=== PATIENT | female | born 1990 | race Caucasian/White ===

== ENCOUNTER → 2025-01-09 15:03 | Outpatient (REF) | payer OTHER, SELFPAY | LOC: PNTC 15:03 | PROVIDERS: ATTENDING PHYSICIAN Obstetrics & Gynecology | DX: O09.30 Supervision of pregnancy with insufficient antenatal care, unspecified trimester (principal); Z36.3 Encounter for antenatal screening for malformations; Z36.9 Encounter for antenatal screening, unspecified | CPT/HCPCS: 76816 ==

== ENCOUNTER 2025-02-16 08:40 | Inpatient (IN) | payer OTHER, SELFPAY ==
[2025-02-16 08:48] VITALS: BP 139/81; BMI 26.3
[2025-02-16] MEDS: LR 1000 IV ×2 (09:00→10:01)
[2025-02-16 09:53] LABS: Hematocrit 41.8 % (37.0-47.0); Hemoglobin 14.4 g/dL (12.0-16.0); Mean Corp Hgb Conc. 34.4 g/dL (33.0-37.0); Mean Corpuscular Volume 87.4 fL (81.0-99.0); Nucleated Red Blood Cells % 0 %; Platelet Count 190 10^3/uL (130-400); Red Cell Dist. Width 12.4 % (11.5-14.5)
[2025-02-16] MEDS: PENICILLIN 110 UNITS IV (09:59)
[2025-02-16] MEDS: SUBLIMAZE 100 MCG EPIDURAL (10:11)
[2025-02-16] MEDS: FENTANYL/BUPIVACAINE 100 EPIDURAL (10:29)
[2025-02-16] MEDS: PENICILLIN 55 UNITS IV (13:28)
[2025-02-16] MEDS: PITOCIN 30 UNITS/NSS 500 ML IV (14:39)
[2025-02-16] MEDS: TYLENOL 650 MG PO (20:06)
[2025-02-16] MEDS: MOTRIN 600 MG PO (20:06)
[2025-02-16] MEDS: COLACE 100 MG PO (20:06)
[2025-02-17 05:14] LABS: Hematocrit 35.4 % (37.0-47.0); Hemoglobin 12.4 g/dL (12.0-16.0)
[2025-02-17] MEDS: PRENATAL PLUS 1 TABLET PO (11:19)
[2025-02-17] MEDS: COLACE 100 MG PO ×2 (11:19→19:25)
[2025-02-17] MEDS: MOTRIN 600 MG PO (19:25)
[2025-02-17] MEDS: TYLENOL 650 MG PO (19:25)
[2025-02-18] MEDS: COLACE 100 MG PO (08:32)
[2025-02-18] MEDS: PRENATAL PLUS 1 TABLET PO (08:32)
[2025-02-20 14:56] LABS: Syphilis/T. pallidum Ab Reflex Negative (Negative)
== END 2025-02-18 11:41 | disposition home or self-care (01) | DRG 807 ==
LOC: LDRP 08:40
PROVIDERS: ADMITTING PHYSICIAN Obstetrics & Gynecology
PROC: 10E0XZZ Delivery of Products of Conception, External Approach (ICD-10-PCS; 2025-02-16)
PROC: 4A1HXCZ Monitoring of Products of Conception, Cardiac Rate, External Approach (ICD-10-PCS; 2025-02-16)
PROC: 0HQ9XZZ Repair Perineum Skin, External Approach (ICD-10-PCS; 2025-02-16)
DX: O48.0 Post-term pregnancy (principal); Z37.0 Single live birth; O70.0 First degree perineal laceration during delivery; Z3A.40 40 weeks gestation of pregnancy; O69.81X0 Labor and delivery complicated by cord around neck, without compression, not applicable or unspecified; O99.824 Streptococcus B carrier state complicating childbirth; O99.52 Diseases of the respiratory system complicating childbirth; J45.909 Unspecified asthma, uncomplicated; O99.892 Other specified diseases and conditions complicating childbirth; D25.9 Leiomyoma of uterus, unspecified; Z88.2 Allergy status to sulfonamides; Z88.1 Allergy status to other antibiotic agents
CPT/HCPCS: 36415; 85014; 85018; 85025; 86780; 86850; 86900; 86901